=== PATIENT | male | born 2000 | race Caucasian/White ===

== ENCOUNTER 2020-08-05 16:00 | Emergency (ER) | payer OTHER ==
[~2020-08-05] VITALS: Ht 177.8 cm; Wt 79.4 kg
[2020-08-05 16:58] LABS: Alanine Aminotransfer (ALT/SGP 48 U/L (12-78); Albumin, Blood 4.6 g/dL (3.4-5.0); Albumin/Globulin Ratio 1.2 (0.8-1.8); Alk Phos 72 U/L (50-136); Anion Gap 9 mmol/L (6-16); Aspartate Aminotrans (AST/SGOT 72 U/L (12-37); Bilirubin, Total 0.8 mg/dL (0.1-1.0); Blood Urea Nitrogen 16 mg/dL (8-24); Bun/Creatinine Ratio 16.6 (12.0-20.0); CO2, Blood 23 mmol/L (21-32); Chloride, Blood 106 mmol/L (98-108); Creatinine, Blood 0.96 mg/dL (0.60-1.20); Ethanol (Alcohol), Blood, Med <3 mg/dL; Glomerular Filtration Rate >60 (60-); Glucose, Blood 95 mg/dL (70-99); Sodium, Blood 138 mmol/L (136-145); Total Protein, Blood 8.6 g/dL (6.4-8.2)
[2020-08-05 17:05] LABS: BASOPHILS PERCENT AUTO 0 % (0-2); EOSINOPHILS ABSOLUTE AUTO 0.06 K/mm3 (0.00-0.68); EOSINOPHILS PERCENT AUTO 0 % (0-6); Hematocrit 43.6 % (37.0-53.0); Hemoglobin 15.5 g/dL (13.5-17.5); IMMATURE GRAN ABSOLUTE AUTO 0.22 K/mm3 (0.00-0.10); IMMATURE GRAN PERCENT AUTO 1 % (0-1); LYMPHOCYTES ABSOLUTE AUTO 2.71 K/mm3 (0.84-5.20); LYMPHOCYTES PERCENT AUTO 10 % (21-46); MONOCYTES ABSOLUTE AUTO 2.05 K/mm3 (0.16-1.47); MONOCYTES PERCENT AUTO 7 % (4-13); Mean Corpuscular HGB 32.4 pg (26.0-34.0); Mean Corpuscular HGB Conc 35.6 g/dL (31.5-36.5); Mean Corpuscular Volume 91 fL (80-100); Mean Platelet Volume 10.7 fL (9.1-12.4); NEUTROPHILS PERCENT AUTO 82 % (41-73); Platelet Count 299 K/mm3 (150-400); RDW Coefficient Variation 13.2 % (11.7-14.2); RDW Standard Deviation 43.8 fL (35.1-46.3); Red Blood Cell Count 4.79 M/mm3 (4.30-5.90); White Blood Cell Count 28.54 K/mm3 (4.00-11.30)
[2020-08-05 18:40] LABS: Source, Urine Voided
[2020-08-05 18:47] LABS: Appearance, Urine Clear (Clear); Bilirubin, Urine Neg (Neg); Blood, Urine 4+ (Neg); Color, Urine Yellow (P-Yellow); Glucose Qualitative, Urine Neg (Neg); Ketones, Urine 3+ (Neg); Leukocyte Esterase, Urine Neg (Neg); Nitrite, Urine Neg (Neg); Protein, Urine 2+ (Neg); Specific Gravity, Urine 1.015 (1.003-1.022); Urobilinogen, Urine NORM (Normal)
[2020-08-05 19:03] LABS: Amorphous Mod (0-Heavy); Bacteria Few /hpf; Mucus Light (0-Heavy); Squamous Epithelial Cells Few /hpf (Few); White Blood Cells, Urine 0-2 /hpf (0-5)
== END 2020-08-05 20:07 | disposition short-term general hospital (02) ==
LOC: ER 16:00
PROVIDERS: Emergency Medicine
DX: S02.32XA Fracture of orbital floor, left side, initial encounter for closed fracture (principal); S12.601A Unspecified nondisplaced fracture of seventh cervical vertebra, initial encounter for closed fracture; S36.039A Unspecified laceration of spleen, initial encounter; S01.81XA Laceration without foreign body of other part of head, initial encounter; F17.200 Nicotine dependence, unspecified, uncomplicated; V48.6XXA Car passenger injured in noncollision transport accident in traffic accident, initial encounter; Y92.410 Unspecified street and highway as the place of occurrence of the external cause
CPT/HCPCS: 12013; 70450; 71260; 72125; 74177; 80053; 81001; 83690; 85025; 86850; 86900; 86901; 96374-59; 96375-59; 96376-59; 99285-25; A9270; G0480; J1170; J2405; Q9967

== ENCOUNTER 2021-02-28 16:42 | Emergency (ER) | payer BC ==
[~2021-02-28] VITALS: Ht 177.8 cm; Wt 81.7 kg
== END 2021-02-28 20:50 | disposition home or self-care (01) ==
LOC: ER 16:42
DX: F10.129 Alcohol abuse with intoxication, unspecified (principal); R40.4 Transient alteration of awareness
CPT/HCPCS: 82947; 99284; A9270

== ENCOUNTER 2024-02-26 14:44 | Emergency (ER) | payer OTHER ==
[~2024-02-26] VITALS: Ht 172.7 cm; Wt 72.6 kg
[2024-02-26 16:03] LABS: Albumin, Blood 3.1 g/dL (3.4-5.0); Albumin/Globulin Ratio 1.3 (0.8-1.8); Bilirubin, Total 0.2 mg/dL (0.1-1.0); Bun/Creatinine Ratio 13.3 (12.0-20.0); Calcium, Blood 6.4 mg/dL (8.5-10.1); Creatinine, Blood 0.53 mg/dL (0.60-1.20); Globulin, Blood 2.3 g/dL (2.2-4.0); Potassium, Blood 3.4 mmol/L (3.5-5.5); Total Protein, Blood 5.4 g/dL (6.4-8.2)
[2024-02-26 16:04] LABS: BASOPHILS ABSOLUTE AUTO 0.05 K/mm3 (0.00-0.23); BASOPHILS PERCENT AUTO 0 % (0-2); EOSINOPHILS ABSOLUTE AUTO 0.04 K/mm3 (0.00-0.68); EOSINOPHILS PERCENT AUTO 0 % (0-6); Hematocrit 45.3 % (37.0-53.0); Hemoglobin 15.4 g/dL (13.5-17.5); IMMATURE GRAN ABSOLUTE AUTO 0.07 K/mm3 (0.00-0.10); IMMATURE GRAN PERCENT AUTO 1 % (0-1); LYMPHOCYTES ABSOLUTE AUTO 1.97 K/mm3 (0.84-5.20); LYMPHOCYTES PERCENT AUTO 13 % (21-46); MONOCYTES ABSOLUTE AUTO 0.73 K/mm3 (0.16-1.47); MONOCYTES PERCENT AUTO 5 % (4-13); Mean Corpuscular Volume 94 fL (80-100); Mean Platelet Volume 10.2 fL (9.1-12.4); NEUTROPHILS ABSOLUTE AUTO 12.49 K/mm3 (1.96-9.15); NEUTROPHILS PERCENT AUTO 81 % (41-73); Platelet Count 268 K/mm3 (150-400); RDW Coefficient Variation 13.5 % (11.7-14.2); RDW Standard Deviation 46.8 fL (35.1-46.3); Red Blood Cell Count 4.81 M/mm3 (4.30-5.90); White Blood Cell Count 15.35 K/mm3 (4.00-11.30)
[2024-02-26 16:45] VITALS: BP 132/74
== END 2024-02-26 16:45 | disposition home or self-care (01) ==
LOC: ER 14:44
PROVIDERS: Emergency Medicine
DX: F10.929 Alcohol use, unspecified with intoxication, unspecified (principal); F17.200 Nicotine dependence, unspecified, uncomplicated
CPT/HCPCS: 80053; 80320; 85025